=== PATIENT | female | born 1940 | race Caucasian/White ===

== ENCOUNTER → 2016-12-17 | Outpatient (CLI) | payer OTHER ==
[~2016-12-17] MED LIST: PRAV20TA PO
[2016-12-17 10:35] LABS: BASO % 0.6 %; BASO ABS # 0.03 K/uL (0-0.2); COMPLETE YES; EOS % 0.8 %; HEMATOCRIT 43.5 % (37-47); LYMPH % 28.1 %; LYMPH ABS # 1.48 K/uL (1.2-3.4); MEAN CELL VOLUME 89.1 fL (80-100); MEAN CORPUSCULAR HEMOGLOBIN 28.5 pg (25-34); MEAN PLATELET VOLUME 9.1 fL (7.4-10.4); MONO % 6.3 %; NEUT % 64.2 %; PLATELET COUNT 226 K/uL (130-400); RED BLOOD COUNT 4.88 M/uL (4.2-5.4); WHITE BLOOD COUNT 5.27 K/uL (4.8-10.8)
[2016-12-17 10:39] LABS: ESTIMATED AVERAGE GLUCOSE 114 mg/dl; HA1C FLAG Normal (Normal)
[2016-12-17 11:45] LABS: ALB/GLOB RATIO 1.2 (0.9-2); ALT/SGPT 20 U/L (12-78); AST/SGOT 14 U/L (15-37); BLOOD UREA NITROGEN 19 mg/dl (7-18); BUN/CREATININE RATIO 14.5 (10-20); CALCIUM 9.3 mg/dl (8.5-10.1); CARBON DIOXIDE 25 mmol/L (21-32); CHLORIDE 112 mmol/L (98-107); CHOLESTEROL 184 mg/dl (0-200); GLUCOSE 82 mg/dl (70-99); POTASSIUM 4.3 mmol/L (3.5-5.1); SODIUM 145 mmol/L (136-145); TRIGLYCERIDES 127 mg/dl (0-150); URIC ACID 4.3 mg/dl (2.6-7.2); VERY LOW DENSITY LIPOPROT CALC 25 mg/dl
[2016-12-17 11:54] LABS: ALKALINE PHOSPHATASE 49 U/L (45-117); C-REACTIVE PROTEIN < 0.29 mg/dl (0-0.29); CHOLESTEROL/HDL RATIO 3.2; HDL CHOLESTEROL 57 mg/dl; LDL CHOLESTEROL CALCULATED 102 mg/dl; TOTAL IRON BINDING CAPACITY 317 mcg/dl (250-450)
== END | disposition home or self-care (01) ==
LOC: C.LAB1850 09:51
PROVIDERS: ATTEND Family Medicine
DX: R73.09 Other abnormal glucose (principal); E55.9 Vitamin D deficiency, unspecified; D51.9 Vitamin B12 deficiency anemia, unspecified; E78.9 Disorder of lipoprotein metabolism, unspecified; R53.83 Other fatigue

== ENCOUNTER → 2017-02-10 | Outpatient (CLI) | payer OTHER ==
--- NOTE | 2017-02-10 11:05 | DIAGNOSTIC IMAGING REPORT ---
CHEST 2 VIEWS ROUTINE CLINICAL HISTORY: Back pain. COMPARISON STUDY: Chest radiograph May 28, 2016 FINDINGS: Lung volumes are normal. There is no consolidation to suggest pneumonia. No pneumothorax or pleural effusion is present. Cardiomediastinal silhouette is stable. There is no evidence of pulmonary edema. No thoracic spine compression fracture shown on lateral projection. A bubbly appearance of the splenic flexure of the colon is again noted and this suggests pneumatosis which was shown on prior abdominal CT of March 26, 2016. IMPRESSION: 1. No acute cardiopulmonary findings. 2. Bubbly appearance of the splenic flexure of the colon. 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 This finding is nonspecific and in the absence of abdominal pain is of doubtful significance given stability since prior exam. However, bowel ischemia could appear similar and therefore correlation with abdominal pain is recommended. Electronically signed by: Harry Sherwood M.D. 02/10/2017 11:04 AM Dictated Date/Time: 02/10/2017 10:57 AM
--- NOTE | 2017-02-10 11:07 | DIAGNOSTIC IMAGING REPORT ---
L-SPINE MIN 4 VIEWS ROUTINE CLINICAL HISTORY: Back pain. COMPARISON: None FINDINGS: Alignment of lumbar spine is anatomic. Vertebral body heights are maintained. There is no fracture or suspicious lesion. There is mild multilevel degenerative disc disease and moderate multilevel facet arthrosis. IMPRESSION: 1. No lumbar spine fracture. 2. Mild multilevel degenerative disc disease and moderate multilevel facet arthrosis of the lumbar spine. Electronically signed by: Harry Sherwood M.D. 02/10/2017 11:05 AM Dictated Date/Time: 02/10/2017 11:04 AM
--- NOTE | 2017-02-10 11:19 | DIAGNOSTIC IMAGING REPORT ---
THORACIC SPINE 3 VIEWS ROUTINE CLINICAL HISTORY: Back pain. COMPARISON STUDY: Chest CT March 26, 2016. FINDINGS: Alignment of the thoracic spine is anatomic. Vertebral body heights are maintained. There is no fracture or suspicious lesion. There is mild multilevel degenerative disc disease of the thoracic spine. A cyst within the left lower lung is noted. IMPRESSION: 1. No thoracic spine fracture. 2. Mild multilevel degenerative disc disease of the thoracic spine. Electronically signed by: Harry Sherwood M.D. 02/10/2017 11:18 AM Dictated Date/Time: 02/10/2017 11:18 AM
== END | disposition home or self-care (01) ==
LOC: C.RAD 10:08
PROVIDERS: ATTEND Family Medicine
DX: M54.6 Pain in thoracic spine (principal); K63.89 Other specified diseases of intestine; M47.896 Other spondylosis, lumbar region

== ENCOUNTER → 2017-02-24 | Outpatient (CLI) | payer OTHER ==
--- NOTE | 2017-02-25 07:44 | MAMMOGRAPHY REPORT ---
BILATERAL DIGITAL SCREENING MAMMOGRAM WITH CAD: 02/24/2017 CLINICAL HISTORY: Routine screening. Patient has no complaints. TECHNIQUE: Bilateral CC and MLO views were obtained. Current study was also evaluated with a Compute r Aided Detection (CAD) system. COMPARISON: Comparison is made to exams dated: 02/21/2016 mammogram, 01/23/2015 mammogram, 01/26/2014 [place] m[place], 01/18/2014 mammogram, 01/11/2013 mammogram, and 01/06/2012 mammogram - [facility] er. BREAST COMPOSITION: The tissue of both breasts is heterogeneously dense, which may obscure small mas ses. FINDINGS: There are a few benign round calcifications bilaterally. No suspicious mass, architectural distortion or cluster of suspicious microcalcifications is seen. IMPRESSION: ACR BI-RADS CATEGORY 1: NEGATIVE There is no mammographic evidence of malignancy. A 1 year screening mammogram is recommended. The pa tient will receive written notification of the results. Approximately 10% of breast cancers are not detected with mammography. A negative mammographic report should not delay biopsy if a clinically suggestive mass is present. Johanne Patel M.D. ay/:02/24/2017 15:35:30 Health Information Systems Technician: Kenia CRUZ(R)(M), [facility] letter sent: Normal 1/2 BI-RADS Code: ACR BI-RADS Category 1: Negative
== END | disposition home or self-care (01) ==
LOC: C.MAMM 10:11
PROVIDERS: ATTEND Family Medicine
DX: Z12.31 Encounter for screening mammogram for malignant neoplasm of breast (principal)

== ENCOUNTER → 2017-09-16 | Outpatient (CLI) | payer OTHER ==
--- NOTE | 2017-09-16 10:51 | DIAGNOSTIC IMAGING REPORT ---
C-SPINE ROUTINE 4 OR 5 VIEWS HISTORY: Pain. Degenerative change. ARTHRITIS COMPARISON: None. FINDINGS: The cervical spine is visualized from C1 through the superior endplate of T1. There is no fracture. Straightening of cervical curvature consistent with muscular spasm. Degenerative disc change most prominent from C4 through C7. No evidence for compression deformity. Moderate degenerative changes of the posterior elements. Mild calcification of the carotid vasculature. Prevertebral soft tissues and the atlantodens interval are intact. IMPRESSION: Considerable degenerative change of the mid to lower cervical spine. No acute process. Muscular spasm. The above report was generated using voice recognition software. It may contain grammatical, syntax or spelling errors. Electronically signed by: Aroldo Dixon M.D. 09/16/2017 10:49 AM Dictated Date/Time: 09/16/2017 10:49 AM
--- NOTE | 2017-09-16 11:02 | DIAGNOSTIC IMAGING REPORT ---
THORACIC SPINE 3 VIEWS ROUTINE, L-SPINE MIN 4 VIEWS ROUTINE HISTORY: 77 years-old Female ARTHRITIS chronic thoracic and lumbar spine pain without reported trauma COMPARISON: Thoracolumbar spine radiographs 02/10/2017 TECHNIQUE: 3 views of the thoracic spine and 5 views of the lumbar spine FINDINGS: THORACIC: No acute fracture or subluxation identified. Multilevel mostly mild and mild to moderate intervertebral disc space narrowing with endplate spurring and moderate facet arthrosis. Cyst of the lower left lung is again noted, 2.6 cm. The heart appears enlarged. LUMBAR: There are 5 lumbar type vertebral segments present. No spondylolysis or spondylolisthesis. Mild multilevel intervertebral disc space narrowing with at least moderate multilevel facet arthrosis. Multilevel endplate spurring without acute fracture or subluxation. No significant change from prior. Atherosclerosis of the aorta. IMPRESSION: 1. No acute fracture or subluxation of the thoracic or lumbar spine. 2. Multilevel discogenic degenerative changes, spondylolysis and facet arthropathy as above. The above report was generated using voice recognition software. It may contain grammatical, syntax or spelling errors. Electronically signed by: Mikhail Reddy M.D. 09/16/2017 11:00 AM Dictated Date/Time: 09/16/2017 10:57 AM
== END | disposition home or self-care (01) ==
LOC: C.RAD 09:40
PROVIDERS: ATTEND Family Medicine
DX: M12.88 Other specific arthropathies, not elsewhere classified, other specified site (principal); M43.04 Spondylolysis, thoracic region

== ENCOUNTER → 2017-10-06 | Outpatient (CLI) | payer OTHER | END | disposition home or self-care (01) | LOC: C.MAMM 09:39 | PROVIDERS: ATTEND Family Medicine | DX: M85.852 Other specified disorders of bone density and structure, left thigh (principal) ==

== ENCOUNTER → 2018-02-03 | Outpatient (CLI) | payer OTHER ==
[2018-02-03 12:01] LABS: BASO % 0.3 %; BASO ABS # 0.02 K/uL (0-0.2); EOS % 0.8 %; EOS ABS # 0.05 K/uL (0-0.5); HEMATOCRIT 40.4 % (37-47); HEMOGLOBIN 13.4 g/dL (12.0-16.0); IG# 0.01 K/uL (0.00-0.02); LYMPH % 25.2 %; MEAN CELL VOLUME 88.6 fL (80-100); MEAN CORPUSCULAR HEMOGLOBIN 29.4 pg (25-34); MEAN CORPUSCULAR HGB CONC 33.2 g/dl (32-36); MEAN PLATELET VOLUME 9.6 fL (7.4-10.4); MONO % 7.7 %; MONO ABS # 0.46 K/uL (0.11-0.59); NEUT % 65.8 %; NEUT ABS # 3.92 K/uL (1.4-6.5); PLATELET COUNT 227 K/uL (130-400); RED CELL DISTRIBUTION WIDTH CV 13.9 % (11.5-14.5); RED CELL DISTRIBUTION WIDTH SD 45.2 fL (36.4-46.3); WHITE BLOOD COUNT 5.96 K/uL (4.8-10.8)
[2018-02-03 12:28] LABS: HEMOGLOBIN A1C 5.8 % (4.5-5.6)
[2018-02-03 12:31] LABS: ALBUMIN 3.8 gm/dl (3.4-5.0); ALKALINE PHOSPHATASE 47 U/L (45-117); ALT/SGPT 18 U/L (12-78); AST/SGOT 14 U/L (15-37); BLOOD UREA NITROGEN 19 mg/dl (7-18); CALCIUM 9.2 mg/dl (8.5-10.1); CARBON DIOXIDE 24 mmol/L (21-32); CHOLESTEROL 177 mg/dl (0-200); CREATININE 1.17 mg/dl (0.60-1.20); GLUCOSE 82 mg/dl (70-99); LDL CHOLESTEROL CALCULATED 94 mg/dl; POTASSIUM 4.4 mmol/L (3.5-5.1); SODIUM 142 mmol/L (136-145); TOTAL PROTEIN 7.5 gm/dl (6.4-8.2); TRANSFERRIN 227 mg/dl (200-360); URIC ACID 4.5 mg/dl (2.6-7.2)
== END | disposition home or self-care (01) ==
LOC: C.LAB1850 09:50
PROVIDERS: ATTEND Family Medicine
DX: R73.09 Other abnormal glucose (principal); E55.9 Vitamin D deficiency, unspecified; D51.9 Vitamin B12 deficiency anemia, unspecified; E78.9 Disorder of lipoprotein metabolism, unspecified; R53.83 Other fatigue

== ENCOUNTER → 2018-02-16 | Outpatient (CLI) | payer OTHER ==
--- NOTE | 2018-02-16 10:51 | DIAGNOSTIC IMAGING REPORT ---
CAROTID DOPPLER NECK ART HISTORY: Peripheral vascular disease CAD COMPARISON: 01/11/2015 TECHNIQUE: Real-time, grayscale, and color Doppler sonography of the carotid arteries was performed. Imaging reviewed in the transverse and longitudinal planes. All measurements were calculated based on NASCET criteria. FINDINGS: Antegrade flow is seen in the bilateral vertebral arteries. The brachial pressures are hemodynamically similar. Moderate plaque formation bilaterally The peak systolic velocity within the right ICA is 84. The right systolic ratio is 1.0. The peak systolic velocity within the left ICA is 52. The left systolic ratio is 0.7. IMPRESSION: No hemodynamically significant stenosis seen within the carotid arteries. Moderate plaque formation bilaterally. No change from the prior study. The above report was generated using voice recognition software. It may contain grammatical, syntax or spelling errors. Electronically signed by: Aroldo Dixon M.D. 02/16/2018 10:50 AM Dictated Date/Time: 02/16/2018 10:48 AM
== END | disposition home or self-care (01) ==
LOC: C.ULTR 09:47
PROVIDERS: ATTEND Family Medicine
DX: I65.29 Occlusion and stenosis of unspecified carotid artery (principal)

== ENCOUNTER → 2018-02-24 | Outpatient (CLI) | payer OTHER ==
--- NOTE | 2018-02-24 11:07 | DIAGNOSTIC IMAGING REPORT ---
CHEST 2 VIEWS ROUTINE CLINICAL HISTORY: Cough. COMPARISON STUDY: Chest radiograph February 10, 2017. FINDINGS: Lung volumes are normal. No pneumothorax or pleural effusion is noted. There is no consolidation to suggest pneumonia. Pulmonary vascularity is normal. Cardiomediastinal silhouette is normal. Appearance of the chest is unchanged. Note is again made of a bubbly appearance of the splenic flexure of the colon which is unchanged since CT of March 26, 2016 and chest radiograph February 10, 2017. IMPRESSION: 1. No acute cardiopulmonary findings. 2. No change in a bubbly appearance of the splenic flexure of the colon since prior abdominal CT of March 26, 2016. This represents pneumatosis cystoides intestinalis. This finding is nonspecific and in the absence of abdominal pain is of doubtful significance given stability since previous studies. However, correlation with abdominal pain is recommended as the sequela of bowel ischemia could appear similar although is considered much less likely. Electronically signed by: Harry Sherwood M.D. 02/24/2018 11:06 AM Dictated Date/Time: 02/24/2018 11:02 AM
== END | disposition home or self-care (01) ==
LOC: C.RADBC 10:12
PROVIDERS: ATTEND Family Medicine
DX: R05 Cough (principal)

== ENCOUNTER → 2018-03-02 | Outpatient (CLI) | payer OTHER ==
--- NOTE | 2018-03-03 13:52 | MAMMOGRAPHY REPORT ---
BILATERAL DIGITAL SCREENING MAMMOGRAM TOMOSYNTHESIS WITH CAD: 03/02/2018 CLINICAL HISTORY: Routine screening. Patient has no complaints. TECHNIQUE: The study was acquired using full field digital technology and interpreted from soft copy. Breast tomosynthesis in addition to standard 2D mammography was performed. Current study was also ev aluated with a Computer Aided Detection (CAD) system. COMPARISON: Comparison is made to exams dated: 02/24/2017 mammogram, 02/21/2016 mammogram, 01/23/2015 mamm ogram, 01/26/2014 mammogram, 01/18/2014 mammogram, and 01/11/2013 mammogram - [facility] BREAST COMPOSITION: The tissue of both breasts is heterogeneously dense, which may obscure small mass es. FINDINGS: There are a few benign rim calcifications in the breasts. No suspicious mass, architectural distortion or cluster of microcalcifications is seen. IMPRESSION: ACR BI-RADS CATEGORY 1: NEGATIVE There is no mammographic evidence of malignancy. A 1 year screening mammogram is recommended.( [id number]) The patient will receive written notification of the results. Some breast cancers are not detected with mammography. A negative mammographic report should not loni y biopsy if a clinically suggestive mass is present. Johanne Patel M.D. ay/:03/02/2018 16:47:53 Finance Vice President: RT Balta(Sofia)(M), [facility] letter sent: Normal 1/2 BI-RADS Code: ACR BI-RADS Category 1: Negative
== END | disposition home or self-care (01) ==
LOC: C.MAMM 10:16
PROVIDERS: ATTEND Family Medicine
DX: Z12.31 Encounter for screening mammogram for malignant neoplasm of breast (principal)